=== PATIENT | female | born 1940 | race Caucasian/White ===

== ENCOUNTER → 2016-10-28 | Outpatient (CLI) | payer MEDICARE, OTHER ==
[~2016-10-28] MED LIST: SYNTHROID25 MCG PO
== END ==
LOC: KOH-I 16:19
DX: R07.81 Pleurodynia (principal); S22.32XA Fracture of one rib, left side, initial encounter for closed fracture
CPT/HCPCS: 71101

== ENCOUNTER 2020-07-31 10:48 | Emergency (ER) | payer MEDICARE, OTHER ==
[~2020-07-31 10:48] MED LIST changes: +PERCOCET 5/325 T1 EA PO
[2020-07-31 14:22] LABS: HEMOGLOBIN 11.8 gm/dl (12.3-15.3); RED BLOOD COUNT 3.76 M/UL (4.00-5.10); WHITE BLOOD COUNT 8.9 K/UL (4.5-11.0)
== END 2020-07-31 16:41 | disposition home or self-care (01) ==
LOC: ER1 10:48
PROVIDERS: Family Medicine
DX: M17.12 Unilateral primary osteoarthritis, left knee (principal); I10 Essential (primary) hypertension; Z86.718 Personal history of other venous thrombosis and embolism; Z91.041 Radiographic dye allergy status
CPT/HCPCS: 73564; 80053; 83880; 85025; 85379; 93971; 99284

== ENCOUNTER → 2021-07-02 | Outpatient (CLI) | payer MEDICARE, OTHER | LOC: KOH-I 09:40 | DX: R59.1 Generalized enlarged lymph nodes (principal) | CPT/HCPCS: 70490 ==

== ENCOUNTER → 2021-07-21 | Outpatient (CLI) | payer MEDICARE, OTHER | LOC: US 10:45 | DX: N95.0 Postmenopausal bleeding (principal) | CPT/HCPCS: 76856 ==

== ENCOUNTER → 2021-08-06 | Outpatient (CLI) | payer MEDICARE, OTHER | LOC: KOH-I 07-30 11:30 | DX: N93.9 Abnormal uterine and vaginal bleeding, unspecified (principal) | CPT/HCPCS: 72192 ==

== ENCOUNTER → 2021-11-18 | Outpatient (CLI) | payer MEDICARE, OTHER ==
[2021-11-19 10:16] LABS: CREATININE, URINE 94.8 mg/dL (Not Estab.)
== END ==
LOC: US 13:13
PROVIDERS: Internal Medicine Nephrology
DX: N18.4 Chronic kidney disease, stage 4 (severe) (principal); N27.1 Small kidney, bilateral
CPT/HCPCS: 36415; 80048; 81001; 82043; 82570; 84156

== ENCOUNTER 2022-04-25 10:10 | Emergency (ER) | payer MEDICARE, OTHER ==
[2022-04-25 10:46] LABS: HEMOGLOBIN 13.1 gm/dl (12.3-15.3); RED BLOOD COUNT 4.18 M/UL (4.00-5.10); WHITE BLOOD COUNT 8.5 K/UL (4.5-11.0)
[2022-04-25] MEDS ORDERED: OMNICEF 300 MG300 MG PO (13:42)
== END 2022-04-25 15:30 | disposition home or self-care (01) ==
LOC: ER1 10:10
PROVIDERS: Physician Assistant
DX: N39.0 Urinary tract infection, site not specified (principal); R31.9 Hematuria, unspecified; E78.5 Hyperlipidemia, unspecified; I10 Essential (primary) hypertension; D64.9 Anemia, unspecified; Z90.49 Acquired absence of other specified parts of digestive tract; Z20.822 Contact with and (suspected) exposure to COVID-19
CPT/HCPCS: 70450; 71045; 80053; 81001; 82550; 82553; 83605; 83690; 83735; 84484; 85025; 87077; 87086; 87186; 93005; 96374; 99284; J0696; U0002